=== PATIENT | male | born 2000 | race Caucasian/White ===

== ENCOUNTER 2019-10-19 00:27 | Emergency (ER) | payer SELFPAY ==
[2019-10-19] MEDS ORDERED: ONDANSETRON HCL IV 4 MG/2 ML VIAL IVP ONE (00:35)
--- NOTE | 2019-10-19 00:43 | Emergency Department Record ---
History of Present Illness - General Chief Complaint: Abdominal Pain Stated Complaint: abdominal pain x3 days Time Seen by Provider: 10/19/19 00:28 Source: Patient Mode of Arrival: Ambulatory Limitations: No limitations - History of Present Illness Initial Comments: 19 yo male presents to ED for evaluation of chest pain, abdominal pain, and vomiting that began approximately 5 hours ago. Patient reports pain "all over" from the waist up. Patient denies fevers of chills, but does report cough and URI symptoms for the past 1 week. Patient denies health problems at his baseline. MD Complaint: Abdominal pain Onset/Timin -: Hour(s) Location: Diffuse Radiation: None Migration to: No migration Severity: Severe Quality: Aching Consistency: Constant Improves With: Nothing Worsens With: Nothing Associated Symptoms: Nausea, Vomiting - Related Data Previous Rx's Medication Instructions Recorded Ondansetron [Zofran Odt] 4 mg PO Q8H PRN #15 tab.rapdis 10/19/19 Review of Systems Constitutional: Denies: Chills, Fever, Malaise, Night sweats Eyes: Denies: Eye discharge, Eye pain ENT: Denies: Congestion, Ear pain, Epistaxis Respiratory: Denies: Cough, Dyspnea Cardiovascular: Reports: Chest pain. Denies: Dyspnea on exertion Endocrine: Denies: Fatigue, Heat or cold intolerance Gastrointestinal: Reports: Abdominal pain, Nausea, Vomiting. Denies: Constipation Genitourinary: Denies: Incontinence, Retention Musculoskeletal: Reports: Myalgia. Denies: Arthralgia, Back pain Skin: Denies: Bruising, Change in color Neurological: Denies: Abnormal gait, Confusion, Headache, Seizure Psychiatric: Reports: Anxiety Hematological/Lymphatic: Denies: Anemia, Blood Clots Physical Exam - General General Appearance: Alert, Oriented x3, Cooperative, Moderate distress, Anxious, Other (Crying on examination) Limitations: No limitations - Head Head exam: Atraumatic, Normocephalic, Normal inspection, Other (Numerous skin ulcerations to the face, upper extremities on examination.) Head exam detail: negative: Abrasion, Contusion, Rios's sign, General tenderness, Hematoma, Laceration - Eye Eye exam: Other (Injected sclera bilaterally). negative: Periorbital swelling, Periorbital tenderness, Scleral icterus - ENT Ear exam: negative: Auricular hematoma, Auricular trauma Nasal Exam: negative: Active bleeding, Discharge, Dried blood, Foreign body Mouth exam: negative: Drooling, Laceration, Muffled voice, Tongue elevation Teeth exam: Dental caries - Neck Neck exam: Normal inspection. negative: Meningismus, Tenderness - Respiratory Respiratory exam: Normal lung sounds bilaterally. negative: Rales, Respiratory distress, Rhonchi, Stridor - Cardiovascular Cardiovascular Exam: Regular rate, Normal rhythm, Normal heart sounds - GI/Abdominal GI/Abdominal exam: Soft, Tenderness (Diffuse TTP on examination, no rebound, no guarding). negative: Rebound, Rigid - Rectal Rectal exam: Deferred - exam: Deferred - Extremities Extremities exam: Other (Numerous skin ulcerations to the hands, upper extremities bilaterally). negative: Calf tenderness, Pedal edema, Tenderness - Back Back exam: Denies: CVA tenderness (R), CVA tenderness (L) - Neurological Neurological exam: Alert, Normal gait, Oriented X3 - Psychiatric Psychiatric exam: Normal affect, Normal mood - Skin Skin exam: Normal color. negative: Abrasion Type of lesion: negative: abrasion Course - Reevaluation(s) Reevaluation #1: 10/19/19 00:53 EKG: NSR 105 Normal axis, normal intervals No acute ST-T wave changes Reevaluation #2: 10/19/19 01:12 Laboratory studies were reviewed and appear grossly unremarkable for an acute process except for the following: Lipase >645 Glucose 415 Patient reassessed, appears calmer at this time. Patient is going for CT imaging and CXR. Reevaluation #3: 10/19/19 01:43 CXR: No acute process CT Abdomen and Pelvis: Milka-pancreatic edema, findings appear c/w pancreatitis Stool throughout the colon. Reevaluation #4: 10/19/19 02:12 Urinalysis and UDS appear negative for an acute process. Following discussion with the patient regarding admission, patient reports that he wants to leave AMA at this time. Risks of , permanent impairment, or worsening of their current condition were discussed as well as the benefit of admission for further evaluation of their presenting symptoms. Patient verbalizes understanding of all risks and benefits, and desires to leave AMA despite these risks. Based on my examination, the patient is alert, oriented, and answers all questions appropriately. Patient appears to have the capacity to make rational decisions based on my examination. Patient was encouraged to return to the ED immediately if they change their mind about treatment and want to be re-evaluated. Medical Decision Making - Lab Data Result diagrams: 10/19/19 00:43 10/19/19 00:43 Disposition Disposition: Discharge Clinical Impression: IDDM (insulin dependent diabetes mellitus), Hyperglycemia without ketosis Pancreatitis Qualifiers: Chronicity: acute Pancreatitis type: unspecified pancreatitis type Acute pancreatitis complication: unspecified Qualified Code(s): K85.90 - Acute pancreatitis without necrosis or infection, unspecified Disposition: Against Medical Advice Condition: (2) Stable Instructions: Pancreatitis (ED) Additional Instructions: Return to ED if your symptoms worsen or if you have any concerns. Zofran as directed. Follow-up with your family doctor in 3-5 days as directed. Prescriptions: Ondansetron [Zofran Odt] 4 mg PO Q8H PRN #15 tab.rapdis PRN Reason: Nausea/Vomiting Forms: Patient Portal Access Time of Disposition: 02:18 Quality - Quality Measures Quality Measures: N/A - Blood Pressure Screening Does Patient Have Any of the Following: No Blood Pressure Classification: Hypertensive Reading Systolic Measurement: 130 Diastolic Measurement: 95 Screening for High Blood Pressure: < First Hypertensive BP, F/U Documented > [G8950] First Hypertensive Follow-up Interventions: Referral to alternative/primary care provider.
[2019-10-19] MEDS ORDERED: 0.9 % SODIUM CHLORIDE 1000ML 1,000 ML IV SCH (00:45)
[2019-10-19 00:54] LABS: ABSOLUTE NEUTROPHIL COUNT 5.15; BASO % 0.1 % (0-6); EOS % 1.6 % (0-6); GRAN % 57.9 % (47-80); HEMOGLOBIN 16.9 gm/dl (14.0-18.0); LYMPH % 30.8 % (16-45); MEAN CELL VOLUME 86.1 fl (81-97); MEAN CORPUSCULAR HEMOGLOBIN 29.7 pg (27-33); MEAN CORPUSCULAR HGB CONC 34.5 g/dl (32-36); MEAN PLATELET VOLUME 9.2 fl (7.4-10.4); MONO % 9.6 % (0-9); PLATELET COUNT 222 K/uL (130-400); RED BLOOD COUNT 5.69 M/uL (4.40-5.70); RED CELL DISTRIBUTION WIDTH 12.4 % (11.5-14.5); WHITE BLOOD COUNT W/O DIFF 8.9 K/uL (4.2-12.2)
[2019-10-19 01:00] LABS: BLOOD UREA NITROGEN 19 mg/dL (6-20); CREATININE 0.6 mg/dL (0.7-1.2); EST GLOMERULAR FILTRATION RATE > 60 mL/min
[2019-10-19 01:01] LABS: TOTAL PROTEIN 7.6 g/dL (6.6-8.7)
[2019-10-19 01:03] LABS: GLUCOSE,RANDOM 415 mg/dL (74-109)
[2019-10-19 01:05] LABS: ALB/GLOB RATIO 1.8 (1.1-1.8); ALBUMIN 4.9 g/dL (4.0-5.0); ALKALINE PHOSPHATASE 254 U/L (40-129); ALT/SGPT 36 U/L (<41); AST/SGOT 19 U/L (10.0-50.0); INFLUENZA A NEGATIVE (NEGATIVE); INFLUENZA B NEGATIVE (NEGATIVE)
[2019-10-19 01:14] LABS: LIPASE 851 U/L (13-60)
[2019-10-19] MEDS ORDERED: KETOROLAC 30 MG/ML VIAL IVP ONE (01:31)
--- NOTE | 2019-10-19 01:41 | RADIOLOGY REPORT ---
EXAMINATION: Two View Chest Radiographs EXAM DATE: 10/19/2019 1:39 AM TECHNIQUE: Frontal and lateral views INDICATION: chest pain COMPARISON: None ENCOUNTER: Not applicable FINDINGS: The heart, mediastinum, and pulmonary vasculature are normal. No lung consolidation or pleural effu sions are present. No pneumothorax. IMPRESSION: No acute cardiopulmonary disease is present. Dictated by: Ashley Sosa MD on 10/19/2019 1:38 AM. .
--- NOTE | 2019-10-19 01:42 | CT SCAN REPORT ---
EXAMINATION: CT Abdomen and Pelvis with IV Contrast EXAM DATE: 10/19/2019 1:30 AM TECHNIQUE: CT imaging of the abdomen and pelvis was performed with intravenous contrast. Coronal and sagittal images were reconstructed. IV Contrast: The amount and type of contrast are recorded in the medical record. INDICATION: chest pain COMPARISON: None ENCOUNTER: Not applicable CT ABDOMEN AND PELVIS FINDINGS: Lung Bases: Included extent of the lung bases are clear. Hepatobiliary: The liver has a normal size with a smooth surface. The hepatic and portal veins appear patent. Pancreas: There is peripancreatic edema. The pancreas appears normal in size Spleen: The spleen is not enlarged. Adrenals: The adrenal glands are normal. Kidneys, Ureters, & Bladder: Both kidneys have a normal size and there is no hydronephrosis. Both ur eters have a normal caliber and the urinary bladder is unremarkable. Gastrointestinal: The stomach and small bowel are normal with no obstruction or inflammation. Increas ed stool throughout the entire colon. Reproductive Organs: Unremarkable Lymphatic System: There is no adenopathy within the abdomen or pelvis. Vasculature: Normal caliber abdominal aorta. Peritoneum: No free fluid, free air, or inflammation Abdominal Wall & Musculoskeletal: No suspicious bone lesions. IMPRESSION: Milka pancreatic edema/fluid. Pancreas appears normal in size. Findings may represent pancreatitis or mesenteritis. Increased stool throughout the entire colon. Dictated by: Sandy Herbert DO on 10/19/2019 1:32 AM. .
[2019-10-19 02:01] LABS: URINE APPEARANCE CLEAR; URINE BILIRUBIN NEGATIVE (NEGATIVE); URINE BLOOD NEGATIVE (NEGATIVE); URINE COLOR YELLOW; URINE KETONE TRACE (NEGATIVE); URINE LEUKOCYTE ESTERASE NEGATIVE (NEGATIVE); URINE NITRITE NEGATIVE (NEGATIVE); URINE PROTEIN NEGATIVE (NEGATIVE); URINE UROBILINOGEN 0.2 E.U./dL (0.20 - 1.00)
[2019-10-19 02:09] LABS: AMPHETAMINE SCREEN URINE NOT DETECTED; BARBITURATE SCREEN URINE NOT DETECTED; BENZODIAZEPINE SCREEN URINE NOT DETECTED; COCAINE SCREEN URINE NOT DETECTED; METHADONE SCREEN URINE NOT DETECTED; METHAMPHETAMINE SCREEN NOT DETECTED; OPIATE SCREEN URINE NOT DETECTED; OXYCODONE SCREEN URINE NOT DETECTED; PHENCYCLIDINE SCREEN URINE NOT DETECTED; PROPOXYPHENE SCREEN URINE NOT DETECTED; THC SCREEN URINE NOT DETECTED; TRICYCLIC ANTIDEPRESSANT SCRN NOT DETECTED; URINE GLUCOSE (UA) >=1000 mg/dL (NEGATIVE)
[2019-10-19] MEDS ORDERED: ONDANSETRON 4 MG ODT TABLET SL ONE (02:18)
== END 2019-10-19 02:25 | disposition left against medical advice (07) ==
LOC: ER 00:27
DX: K85.90 Acute pancreatitis without necrosis or infection, unspecified (principal); E10.65 Type 1 diabetes mellitus with hyperglycemia; R05 Cough; R11.2 Nausea with vomiting, unspecified; R07.9 Chest pain, unspecified
CPT/HCPCS: 99285 ×2; 96374; 96375; 96361; 83690; 85025; 80053; 81003; 80305; 87400; 71046; 74177; 93005; 93010; Q9967; J1885; J2405; J7030

== ENCOUNTER 2019-11-01 16:49 | Emergency (ER) | payer SELFPAY ==
--- NOTE | 2019-11-01 16:58 | Emergency Department Record ---
History of Present Illness - General Chief complaint: Abscess Stated complaint: LUMP IN LEFT ARMPIT Time Seen by Provider: 11/01/19 16:50 Source: Patient Mode of Arrival: Ambulatory Limitations: No limitations - History of Present Illness Initial comments: 19 yo male presents to ED for evaluation of pain to the left axilla this afternoon, patient reports that he was sent home from work as a result of his pain symptoms. Patient denies swelling, redness, fevers, chills, or recent illness. 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 MD complaint: Other Onset/Timin -: Days(s) Location: Chest Severity: Moderate Quality: Aching Consistency: Constant Improves with: None Worsens with: Palpation Context: None Associated symptoms: Denies other symptoms Treatments Prior to Arrival: None - Related Data Home Medications Medication Instructions Recorded Confirmed Last Taken Insulin Glargine,Hum.rec.anlog 15 units SQ BID 11/01/19 11/01/19 11/01/19 [Lantus Solostar] Insulin Glulisine [Apidra Solostar] 7 units SQ ASDIR 11/01/19 11/01/19 11/01/19 Previous Rx's Medication Instructions Recorded Cephalexin [Keflex] 500 mg PO QID #28 cap 11/01/19 Allergies Allergy/AdvReac Type Severity Reaction Status Date / Time No Known Drug Allergies Allergy Verified 11/01/19 16:53 Review of Systems Constitutional: Denies: Chills, Fever, Malaise, Night sweats Eyes: Denies: Eye discharge, Eye pain ENT: Denies: Congestion, Ear pain, Epistaxis Respiratory: Denies: Cough, Dyspnea Cardiovascular: Denies: Chest pain, Dyspnea on exertion Endocrine: Denies: Fatigue, Heat or cold intolerance Gastrointestinal: Denies: Abdominal pain, Nausea, Vomiting Genitourinary: Denies: Incontinence, Retention Musculoskeletal: Denies: Arthralgia, Back pain, Gout, Joint swelling Skin: Reports: Other (Pain left axilla). Denies: Bruising, Change in color Neurological: Denies: Abnormal gait, Confusion, Headache, Tingling, Tremors Psychiatric: Denies: Anxiety Hematological/Lymphatic: Denies: Anemia, Blood Clots Past Medical History - SOCIAL HISTORY Smoking Status: Never smoker Drug Use: None - RESPIRATORY Hx Respiratory Disorders: Yes Hx Asthma: Yes - CARDIOVASCULAR Hx Cardio Disorders: No - NEURO Hx Neuro Disorders: No - GI Hx GI Disorders: No - Hx Genitourinary Disorders: No - ENDOCRINE Hx Endocrine Disorders: Yes Hx Diabetes: Yes (type 1) Hx Thyroid Disease: No - MUSCULOSKELETAL Hx Musculoskeletal Disorders: No - PSYCH Hx Psych Problems: No - HEMATOLOGY/ONCOLOGY Hx Hematology/Oncology Disorders: No Physical Exam - General General Appearance: Alert, Oriented x3, Cooperative, Mild distress Limitations: No limitations - Head Head exam: Atraumatic, Normocephalic, Normal inspection Head exam detail: negative: Abrasion, Contusion, Rios's sign, General tenderness, Hematoma, Laceration - Eye Eye exam: Normal appearance. negative: Conjunctival injection, Periorbital swelling, Periorbital tenderness, Scleral icterus - ENT Ear exam: negative: Auricular hematoma, Auricular trauma Nasal Exam: negative: Active bleeding, Discharge, Dried blood, Foreign body Mouth exam: negative: Drooling, Laceration, Muffled voice, Tongue elevation - Neck Neck exam: Normal inspection. negative: Meningismus, Tenderness - Respiratory Respiratory exam: Normal lung sounds bilaterally. negative: Respiratory distres s, Rhonchi, Stridor, Wheezes - Cardiovascular Cardiovascular Exam: Regular rate, Normal rhythm, Normal heart sounds - GI/Abdominal GI/Abdominal exam: Soft. negative: Distended, Rebound, Rigid, Tenderness - Rectal Rectal exam: Deferred - exam: Deferred - Extremities Extremities exam: Tenderness, Other (Mild TTP to the left axillary region, no erythema, no induration, no fluctuance present.). negative: Pedal edema - Back Back exam: Denies: CVA tenderness (R), CVA tenderness (L) - Neurological Neurological exam: Alert, Normal gait, Oriented X3 - Psychiatric Psychiatric exam: Normal affect, Normal mood - Skin Skin exam: Normal color. negative: Abrasion Type of lesion: negative: abrasion Course - Reevaluation(s) Reevaluation #1: 11/01/19 17:06 Patient was seen and examined reports pain to the left axilla on examination Will treat with Keflex for probable early Hidranitis suppurtiva. No clear indication for incision and drainage based on the patient's examination Patient appears stable for discharge at this time. Disposition Disposition: Discharge Clinical Impression: Hidradenitis axillaris Disposition: Home, Self-Care Condition: (2) Stable Instructions: Hidradenitis Suppurativa (ED) Additional Instructions: Return to ED if your symptoms worsen or if you have any concerns. Keflex as directed. Warm soaks twice daily. Follow-up with your family doctor in 3-5 days as directed. Prescriptions: Cephalexin [Keflex] 500 mg PO QID #28 cap Forms: Patient Portal Access Time of Disposition: 16:58 Quality - Quality Measures Quality Measures: N/A - Blood Pressure Screening Does Patient Have Any of the Following: No Blood Pressure Classification: Normal BP Reading Systolic Measurement: 109 Diastolic Measurement: 72 Screening for High Blood Pressure: < Normal BP, F/U Not Required > [G8783]
== END 2019-11-01 17:10 | disposition home or self-care (01) ==
LOC: ER 16:49
DX: L73.2 Hidradenitis suppurativa (principal)
CPT/HCPCS: 99283